=== PATIENT | female | born 1990 | race Caucasian/White ===

== ENCOUNTER 2017-12-15 20:05 | Emergency (ER) | payer BC, SELFPAY ==
[2017-12-15 20:12] VITALS: BP 131/91; PULSE 112; RESP 18; TEMP 37.1; O2SAT 100; BMI 22.3
[2017-12-15 20:25] LABS: Bacteria Urine None Seen
--- NOTE | 2017-12-15 20:29 | ED.FEMALEGU ---
HPI - Female Genitourinary <Tiffanie Steven PA-C - Last Filed: 12/15/17 21:52> General Chief complaint: Urogenital-Female Stated complaint: THINKS UTI Time Seen by Provider: 12/15/17 20:23 Source: patient Mode of arrival: ambulatory Limitations: no limitations History of Present Illness HPI Narrative: This healthy 27-year-old female complains of onset of dysuria, frequency, and urgency today with gross hematuria. She states that she has had a UTI in the past but has not had bleeding. She denies any nausea or vomiting. She denies any fever, chills, or sweats. She denies any abdominal or flank pain. She denies any vaginal discharge or STD concerns. Denies vaginal bleeding, last period was last week. Related Data Previous Rx's Medication Instructions Recorded nitrofurantoin monohyd/m-cryst 100 mg PO BID 4 Days #8 cap 12/15/17 [Macrobid] Allergies Allergy/AdvReac Type Severity Reaction Status Date / Time Penicillins Allergy Hives Verified 12/15/17 20:18 Sulfa (Sulfonamide Allergy Hives Verified 12/15/17 20:17 Antibiotics) Review of Systems <Tiffanie Steven PA-C - Last Filed: 12/15/17 21:52> Review of Systems All systems reviewed & are unremarkable except as noted in HPI and below PFSH <Tiffanie Steven PA-C - Last Filed: 12/15/17 21:52> Comment: Rare EtOH and THC Exam <Tiffanie Steven PA-C - Last Filed: 12/15/17 21:52> Narrative Exam Narrative: GENERAL APPEARANCE: Patient sitting comfortably, in no distress. LUNGS: Clear to auscultation bilaterally. HEART: Rate and rhythm regular without murmur, normal S1 and S2, no S3 or S4. ABDOMEN: Soft, NT, ND, +BS x 4 quadrants, no CVAT. EXTREMITIES: No cyanosis or edema Initial Vital Signs Initial Vital Signs: Vital Signs Temperature 98.8 F 12/15/17 20:12 Pulse Rate 112 H 12/15/17 20:12 Respiratory Rate 18 12/15/17 20:12 Blood Pressure 131/91 H 12/15/17 20:12 Pulse Oximetry 100 12/15/17 20:12 <Zechariah Quach DO - Last Filed: 12/16/17 05:06> Initial Vital Signs Initial Vital Signs: Vital Signs Temperature 98.8 F 12/15/17 20:12 Pulse Rate 112 H 12/15/17 20:12 Respiratory Rate 18 12/15/17 20:12 Blood Pressure 131/91 H 12/15/17 20:12 Pulse Oximetry 100 12/15/17 20:12 Course <Tiffanie Steven PA-C - Last Filed: 12/15/17 21:52> Orders Ordered: ED Orders 12/15/17 20:22 Urine Culture Stat Urine Microscopic Stat Discontinued Medications Nitrofurantoin Macrocrystals (Macrobid 100mg Prepack) 1 bottle MISC SEEINSTR ONE Stop: 12/15/17 20:46 Last Admin: 12/15/17 21:00 Dose: 1 bottle Phenazopyridine HCl (Pyridium 100mg Prepack) 1 bottle MISC SEEINSTR ONE Stop: 12/15/17 20:46 Last Admin: 12/15/17 20:59 Dose: 1 bottle Vital Signs - 8 hr 12/15/17 21:25 Temperature 98.4 F Pulse Rate 94 H Respiratory Rate 18 Blood Pressure 122/78 H Pulse Oximetry 100 <Zechariah Quach DO - Last Filed: 12/16/17 05:06> Orders Ordered: ED Orders 12/15/17 20:22 Urine Culture Stat Urine Microscopic Stat Discontinued Medications Nitrofurantoin Macrocrystals (Macrobid 100mg Prepack) 1 bottle MISC SEEINSTR ONE Stop: 12/15/17 20:46 Last Admin: 12/15/17 21:00 Dose: 1 bottle Phenazopyridine HCl (Pyridium 100mg Prepack) 1 bottle MISC SEEINSTR ONE Stop: 12/15/17 20:46 Last Admin: 12/15/17 20:59 Dose: 1 bottle Vital Signs - 8 hr 12/15/17 21:25 Temperature 98.4 F Pulse Rate 94 H Respiratory Rate 18 Blood Pressure 122/78 H Pulse Oximetry 100 MDM - Female Genitourinary <Tiffanie Steven PA-C - Last Filed: 12/15/17 21:52> Lab Data Lab Results 12/15/17 Range/Units 20:22 Urine RBC 30-100/hpf H (0-5/HPF) Urine WBC 10-30/hpf H (0-5/HPF) Ur Transition Epith Cell 1-5/hpf (0-5/HPF) Urine Bacteria None seen (None) Ur Culture Indicated? Specimen cultured Micro UA Comment Not Reportable <Zechariah Quach DO - Last Filed: 12/16/17 05:06> Lab Data Lab Results 12/15/17 Range/Units 20:22 Urine RBC 30-100/hpf H (0-5/HPF) Urine WBC 10-30/hpf H (0-5/HPF) Ur Transition Epith Cell 1-5/hpf (0-5/HPF) Urine Bacteria None seen (None) Ur Culture Indicated? Specimen cultured Micro UA Comment Not Reportable Discharge Plan Departure Patient Disposition: Home, Self-Care Clinical Impression: UTI (urinary tract infection) Discharge Date/Time: 12/15/17 21:26 Interventions: ED Discharge Assessment Last Done: 12/15/17 21:25 Instructions: DI for Urinary Tract Infection (UTI) Activity Restrictions/Additional Instructions: I have sent a prescription to the pharmacy for you with the rest of the antibiotic so you can pick that up tomorrow. Prescriptions: New nitrofurantoin monohyd/m-cryst [Macrobid] 100 mg capsule 100 mg PO BID 4 Days Qty: 8 RF: 0 Referrals: Glenna Lyle MD [Physician] - <Zechariah Quach DO - Last Filed: 12/16/17 05:06> Cosign ED Attending Cosignature Attestation: I was immediately available in the department for consultation. Documentation has been reviewed. I agree with assessment and plan.
[2017-12-15 20:39] LABS: Culture Indicated Urine Specimen Cultured; RBC Urine 30-100/HPF (0-5/HPF); Transitional Epi Cells Urine 1-5/HPF (0-5/HPF); WBC Urine 10-30/HPF (0-5/HPF)
[2017-12-15] MEDS: PHENAZOPYRIDINE 100 MG PREPACK 1 BOTTLE MISC (20:59)
[2017-12-15] MEDS: NITROFURANTOIN 100MG PREPACK 1 BOTTLE MISC (21:00)
[2017-12-15 21:25] VITALS: BP 122/78; PULSE 94; RESP 18; TEMP 36.9; O2SAT 100
== END 2017-12-15 21:26 | disposition home or self-care (01) ==
PROVIDERS: Emergency Provider Internal Medicine
DX: N39.0 Urinary tract infection, site not specified (principal)
CPT/HCPCS: 81003; 81015; 81025; 87077; 87086; 87186; 99282; 99283